=== PATIENT | male | born 1985 | race Caucasian/White ===

== ENCOUNTER 2023-10-21 01:55 | Emergency (ER) | payer OTHER, SELFPAY ==
[2023-10-21 02:02] VITALS: BP 147/95; PULSE 81; RESP 14; TEMP 36.4; O2SAT 98
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
[2023-10-21] MEDS: KETOROLAC 30 MG/ML VIAL (*BKC) 15 MG IM (04:07)
[2023-10-21 04:18] VITALS: BP 139/88; PULSE 80; RESP 16; O2SAT 99
== END 2023-10-21 04:20 | disposition home or self-care (01) ==
PROVIDERS: Emergency Provider Student in an Organized Health Care Education/Training Program; PCP Family Medicine
DX: S00.83XA Contusion of other part of head, initial encounter (principal); Y04.2XXA Assault by strike against or bumped into by another person, initial encounter
CPT/HCPCS: 96372; 99283; J1885

== ENCOUNTER 2023-11-25 12:05 | Emergency (ER) | payer BC, SELFPAY ==
[2023-11-25 12:14] VITALS: BP 129/89; PULSE 85; RESP 18; TEMP 36.6; O2SAT 99
--- NOTE | 2023-11-25 12:27 | ED.URI ---
HPI - URI/Sore Throat General Chief Complaint: Upper Respiratory Infection Stated Complaint: throat/nose/sinus pressure History of Present Illness HPI Narrative: Patient presents with a 2 week history of sore throat nasal congestion and cough. No shortness of breath and no chest pain. Patient states he was exposed to strep throat and is worried that he might have strep throat. No trouble swallowing no drooling. Related Data Allergies Allergy/AdvReac Type Severity Reaction Status Date / Time morphine Allergy Rash Verified 10/21/23 02:09 Review of Systems Review of Systems: CONSTITUTIONAL: Denies chills, or sweats. Reports fever and generalized body aches EYES: Denies visual changes, redness, or discharge. ENT: Denies otalgia. Reports nasal congestion runny nose and sore throat CARDIOVASCULAR: Denies chest pain, palpitations, or edema. RESPIRATORY: Denies dyspnea. Reports occasional cough GASTROINTESTINAL: Denies abdominal pain, nausea, vomiting, or diarrhea. GENITOURINARY: Denies dysuria or hematuria. SKIN: Denies rash or itching. MUSCULOSKELETAL: Denies back pain, joint pain, or myalgia. Reports generalized body aches NEUROLOGIC: Denies headache, numbness, or weakness. PSYCHIATRIC: Denies anxiety or depression. PMFSH Comments At time of signature, agree with nursing past medical, surgical, social and family history. There is no relevant family history pertinent to the presenting complaint Exam Narrative: The patient is a well-developed, well-nourished in no acute distress. SKIN: Skin is warm and dry without erythema, swelling or exudate. There is good turgor. No tenting. HEAD: Atraumatic. Normocephalic. No temporal or scalp tenderness. EYES: Moist and bright. Sclera and conjunctivae normal. No discharge. PERRLA. Extraocular motions intact. Gross visual acuity intact. EARS: Pinna is normal shape and contour. Clear external auditory canals. TM pearly sierra with good cone of light, no erythema or suppuration. Bilateral cerumen noted no gross hearing deficit. NOSE: pink, moist mucosa with good air movement. Clear rhinorrhea without nasal flaring. Septum midline. Mouth: moist mucous membranes. THROAT; mild erythema noted to posterior oropharynx with moderate postnasal drainage. Without exudate or ulceration.. Uvula midline. Normal movement of soft palate. NECK: Supple and nontender with full range of motion without discomfort. No meningeal signs. LUNGS: Equal and bilateral breath sounds without wheezes, rales or rhonchi. CHEST: The chest wall is without retractions or use of accessory muscles. HEART: Has a regular rate and rhythm without murmur, gallops, click or rub. ABDOMEN: Soft, nontender with positive active bowel sounds. No rebound tenderness. EXTREMITIES: Without cyanosis, clubbing or edema. Equal 2+ distal pulses and 2 second capillary refill noted. NEUROLOGIC: alert, active, . The patient moves all extremities with normal muscle strength. Normal muscle tone is noted. Normal coordination is noted. NO focal neurological findings noted. Course Course Level of Care: Express Care Visit Vital Signs Vital signs: Vital Signs Temperature 36.6 C 11/25/23 12:14 Pulse Rate 85 11/25/23 12:14 Respiratory Rate 18 11/25/23 12:14 Blood Pressure 129/89 11/25/23 12:14 Pulse Oximetry 99 11/25/23 12:14 Oxygen Delivery Room Air 11/25/23 12:14 Temperature 36.6 C 11/25/23 12:14 Pulse Rate 85 11/25/23 12:14 Respiratory Rate 18 11/25/23 12:14 Blood Pressure 129/89 11/25/23 12:14 Pulse Oximetry 99 11/25/23 12:14 Oxygen Delivery Room Air 11/25/23 12:14 Discharge Plan Discharge Clinical Impression: Pharyngitis, Upper respiratory infection Patient Disposition: Home, Self-Care Condition: Stable Instructions: Upper Respiratory Infection (DC) Additional Instructions: Increase fluids especially juices and water [id number] cough and cold medicine of your choice for
== END 2023-11-25 12:39 | disposition home or self-care (01) ==
PROVIDERS: Emergency Provider Nurse Practitioner Family; PCP Family Medicine
DX: J02.9 Acute pharyngitis, unspecified (principal); J06.9 Acute upper respiratory infection, unspecified
CPT/HCPCS: 87081; 87880; 99213; G0463